=== PATIENT | female | born 1970 | race Caucasian/White ===

== ENCOUNTER → 2016-04-23 | Outpatient (CLI) | payer BC ==
[~2016-04-23] MED LIST: DOCU-94 PO; IBUP-103 PO; POLY335019 PO
== END | disposition home or self-care (01) ==
LOC: C.PAPS 14:59
PROVIDERS: ATTEND Family Medicine
DX: Z12.72 Encounter for screening for malignant neoplasm of vagina (principal)

== ENCOUNTER → 2016-09-08 | Outpatient (CLI) | payer BC ==
[2016-09-08 16:52] LABS: MEAN CORPUSCULAR HGB CONC 33.3 g/dl (32-36)
[2016-09-08 17:03] LABS: PROTHROMBIN TIME (PATIENT) 10.8 SECONDS (9.0-12.0)
[2016-09-08 17:05] LABS: ALB/GLOB RATIO 1.3 (0.9-2); ALKALINE PHOSPHATASE 72 U/L (45-117); ALT/SGPT 18 U/L (12-78); AST/SGOT 15 U/L (15-37); BLOOD UREA NITROGEN 12 mg/dl (7-18); BUN/CREATININE RATIO 17.8 (10-20); CALCIUM 8.1 mg/dl (8.5-10.1); CARBON DIOXIDE 23 mmol/L (21-32); CHLORIDE 109 mmol/L (98-107); GLUCOSE 90 mg/dl (70-99); POTASSIUM 4.1 mmol/L (3.5-5.1); SODIUM 142 mmol/L (136-145)
[2016-09-08 17:41] LABS: BASO % 0.2 %; BASO ABS # 0.01 K/uL (0-0.2); COMPLETE YES; EOS % 0.5 %; HEMATOCRIT 42.4 % (37-47); IG% 0.2 %; LARGE PLATELETS 1+; LYMPH % 19.4 %; LYMPH ABS # 1.13 K/uL (1.2-3.4); MEAN CELL VOLUME 97.2 fL (80-100); MEAN CORPUSCULAR HEMOGLOBIN 32.3 pg (25-34); MEAN PLATELET VOLUME 13.4 fL (7.4-10.4); MONO % 8.3 %; NEUT % 71.4 %; PLATELET COUNT 130 K/uL (130-400); PLT ESTIMATE DECREASED; RED BLOOD COUNT 4.36 M/uL (4.2-5.4); WHITE BLOOD COUNT 5.81 K/uL (4.8-10.8)
== END | disposition home or self-care (01) ==
LOC: C.LABSPEC 16:40
PROVIDERS: ATTEND Family Medicine
DX: Z01.818 Encounter for other preprocedural examination (principal)

== ENCOUNTER → 2016-09-14 | Outpatient (CLI) | payer BC ==
--- NOTE | 2016-09-14 09:25 | DIAGNOSTIC IMAGING REPORT ---
TWO VIEW CHEST CLINICAL HISTORY: Dyspnea. FINDINGS: PA and lateral chest radiographs are obtained. No prior studies are available for comparison at the time of dictation. The cardiomediastinal silhouette is unremarkable. The lungs appear hyperinflated and hyperlucent. Nonspecific interstitial thickening is noted and there is increased retrosternal clear space. No airspace consolidation or pleural effusion is seen. There is no pneumothorax. The bony thorax appears intact. IMPRESSION: Findings suggest emphysema. There is no acute cardiopulmonary abnormality. Electronically signed by: Ananth Cortes M.D. 09/14/2016 9:24 AM Dictated Date/Time: 09/14/2016 9:21 AM
== END | disposition home or self-care (01) ==
LOC: C.RADBC 09:04
PROVIDERS: ATTEND Family Medicine
DX: R06.02 Shortness of breath (principal)

== ENCOUNTER 2016-10-24 16:12 | Emergency (ER) | payer BC ==
[~2016-10-24] VITALS: Ht 165.1 cm; Wt 61.7 kg
[2016-10-24 16:19] VITALS: Ht 165.1 cm; Wt 61.7 kg
[2016-10-24] MEDS ORDERED: IBUP-103 PO (17:02)
[2016-10-24] MEDS ORDERED: DOCU-94 PO (17:02)
--- NOTE | 2016-10-24 18:26 | DIAGNOSTIC IMAGING REPORT ---
PA CHEST RADIOGRAPH AND UPRIGHT AND SUPINE AP RADIOGRAPHS OF THE ABDOMEN CLINICAL HISTORY: Constipation. COMPARISON STUDY: Chest radiograph September 14, 2016. FINDINGS: Lung volumes are normal. Lungs are clear. No pneumothorax or pleural effusion is present. Cardiac size is normal. Mediastinal contours are normal. There is no evidence of pulmonary edema. There is no free air. The bowel gas pattern is normal. There is a moderate amount of stool within the colon and rectum. Incidental note is made of a few suspected bone islands within the pelvic bones. IMPRESSION: 1. No free air or evidence of bowel obstruction. 2. Moderate amount of stool within the colon and rectum. 3. No acute cardiopulmonary findings. Electronically signed by: Aki Levin M.D. 10/24/2016 6:24 PM Dictated Date/Time: 10/24/2016 6:23 PM
--- NOTE | 2016-10-24 18:42 | EMERGENCY ROOM VISIT NOTE ---
ED Visit Note First contact with patient: 17:00 CHIEF COMPLAINT: Constipation, rectal pain HISTORY OF PRESENT ILLNESS: This 46-year-old female patient presents to the emergency department complaining of constipation and pain in her rectum with straining while attempting to move her bowels. The patient states on October 06, she had rectal surgery with Dr. Berg from [facility]. The patient states she had several skin tags and polyps removed from her rectum. The patient reports a weird skin colored lesion on the right side of the anus. She states this is "like licorice" and worse with straining. The patient states she feels that she has been having difficulty with moving her bowels, and is having to change positions in order to go. The patient states she has only been experiencing golfball sized bowel movements, every couple of days, since her surgery earlier this month. The patient states her last good bowel movement was approximately October 10. She has moved her bowels every 2-3 days since then. She describes her bowel movements now as hard and small, and she is having difficulty passing them. The patient was told to use Benefiber supplements, however she feels that this makes her stool to bulky, and she feels that her stool gets tucked back into her rectum because of the size while taking Benefiber. The patient reports a sharp and burning sensation on the right side of her anus. The patient describes this pain as 8/10 while she's having a bowel movement. The patient denies pain in between bowel movements. The patient denies blood in her stool. The patient did see her surgeon one week ago, and is scheduled to see him again in 3 days. Patient has not used any OTC constipation medications with the exception of Benefiber. The patient has not attempted any other treatments for constipation. The patient denies abdominal pain, nausea, vomiting, diarrhea, chest pain, dyspnea, headache, body aches, chills, fever. REVIEW OF SYSTEMS: A 10-system review of systems was performed with positives and pertinent negatives listed in the history of present illness. All other systems were reviewed and are negative. ALLERGIES: None MEDICATIONS: Advil, Colace, fiber PMH: Polyps in her colon SOCIAL HISTORY: The patient lives locally with family. She denies drug, alcohol , tobacco use. PHYSICAL EXAM: VITALS: Vitals are noted on the nurse's note and reviewed by myself. Vital signs stable. GENERAL: Is a 46-year-old female, in no acute distress, nondiaphoretic, well- developed well-nourished. SKIN: The skin was without rashes, erythema, edema, or bruising. There is no tenting of the skin. Capillary reflex less than 2 seconds. HEAD: Normocephalic atraumatic. EARS: External auditory canals clear, tympanic membranes pearly sidhu without erythema or effusion bilaterally. EYES: Pupils equal round and reactive to light and accommodation. Conjunctivae without injection, sclerae without icterus. Extraocular movements intact. NOSE: Patent, turbinates without inflammation or discharge. No sinus tenderness. MOUTH: Mucous membranes moist. Tonsils are not enlarged. Pharynx without erythema or exudate. Uvula midline. Airway patent. Tongue does not deviate. NECK: Supple without nuchal rigidity. No lymphadenopathy. No thyromegaly. Cervical spine is nontender. No JVD. HEART: Regular rate and rhythm without murmurs gallops or rubs. LUNGS: Clear to auscultation bilaterally without wheezes, rales or rhonchi. No dullness to percussion. No retractions or accessory muscle use. ABDOMEN: Positive bowel sounds x 4. Normal tympanic percussion. Soft, nontender, without masses or organomegaly. Blair sign negative. No guarding or rebound tenderness. RECTAL: No rectal fissures. No skin tags appreciated. No active bleeding. No external or internal hemorrhoids noted on exam. A sterile, water-soluble lubricant was applied to the examiner's finger prior to initial exam. No rectal vault tenderness, no rectal masses, no fecal impaction. MUSCULOSKELETAL: No muscle atrophy, erythema, or edema noted. Full range of motion without joint tenderness in all extremities. No tenderness to palpation. Normal gait. Strength 5/5 throughout. NEURO: Patient was alert and oriented to person place and time. Normal sensation to light and sharp touch. Deep tendon reflexes 2+ throughout. No focal neurological deficits. RADIOLOGY: X-Ray Abdomen with PA Chest: FINDINGS: Lung volumes are normal. Lungs are clear. No pneumothorax or pleural effusion is present. Cardiac size is normal. Mediastinal contours are normal. There is no evidence of pulmonary edema. There is no free air. The bowel gas pattern is normal. There is a moderate amount of stool within the colon and rectum. Incidental note is made of a few suspected bone islands within the pelvic bones. IMPRESSION: 1. No free air or evidence of bowel obstruction. 2. Moderate amount of stool within the colon and rectum. 3. No acute cardiopulmonary findings. EMERGENCY DEPARTMENT COURSE: The patient was seen and evaluated as above. In x- ray of the patient's abdomen was ordered to rule out bowel obstruction. I did discuss x-ray results with the patient, and did discuss with her discharge instructions. I encouraged the patient to follow up with her surgeon on Wednesday at her regularly scheduled appointment. The patient was discharged home in good condition. DIFFERENTIAL DIAGNOSIS: Bowel obstruction, diverticulitis, fecal impaction, malignancy, hemorrhoid, and others. DIAGNOSIS: Constipation DISCHARGE INSTRUCTIONS & TREATMENT: You have been treated in the Emergency Department today for Constipation. Imaging studies do not indicate any emergent issues warranting surgery or admission. You should drink plenty of fluids and stay well hydrated as this can help soften your stool. Increasing your fiber intake can help with frequency and consistency of your stools. Fruits, vegetables, and whole grains are all good sources of dietary fibers. In addition, you might consider adding supplemental fiber to your diet as well (i.e. Benefiber, Fiber Choice, Metamucil). You should schedule an appointment with your Primary Care Provider and/or bleaching supervisor to discuss the possibility of adding a stool softener or laxative to your medications. Stool Softeners and Laxatives should only be taken after consultation with your PCP as they have the potential to cause electrolyte abnormalities and worsening symptoms. Consider adding MiraLAX, one capful daily. 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 Please follow up your regularly scheduled appointment on Wednesday with your bleaching supervisor. Return to the Emergency Department if your current symptoms worsen despite treatment course outlined above, or if you develop any of the following symptoms : worsening abdominal pain, large amount of blood in the stool, black or tarry stools, fevers, chills, or uncontrollable vomiting. Current/Historical Medications Scheduled Docusate Sodium (Colace), 1 CAP PO BID Scheduled PRN Ibuprofen Tab (Advil), 200-600 MG PO Q4H PRN for Pain Allergies Coded Allergies: No Known Allergies (Unverified , 10/24/16) Vital Signs Date Time Temp Pulse Resp B/P (MAP) Pulse Ox O2 Delivery O2 Flow Rate FiO2 7/29/17 16:19 36.9 83 16 141/92 98 Room Air Departure Information Impression Primary Impression: Constipation Dispostion Home / Self-Care Condition GOOD Referrals Sara Pretty (PCP) Patient Instructions ED Constipation, My [facility] Additional Instructions You have been treated in the Emergency Department today for Constipation. Imaging studies do not indicate any emergent issues warranting surgery or admission. You should drink plenty of fluids and stay well hydrated as this can help soften your stool. Increasing your fiber intake can help with frequency and consistency of your stools. Fruits, vegetables, and whole grains are all good sources of dietary fibers. In addition, you might consider adding supplemental fiber to your diet as well (i.e. Benefiber, Fiber Choice, Metamucil). You should schedule an appointment with your Primary Care Provider and/or bleaching supervisor to discuss the possibility of adding a stool softener or laxative to your medications. Stool Softeners and Laxatives should only be taken after consultation with your PCP as they have the potential to cause electrolyte abnormalities and worsening symptoms. Consider adding MiraLAX, one capful daily. 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 Please follow up your regularly scheduled appointment on Wednesday with your bleaching supervisor. Return to the Emergency Department if your current symptoms worsen despite treatment course outlined above, or if you develop any of the following symptoms : worsening abdominal pain, large amount of blood in the stool, black or tarry stools, fevers, chills, or uncontrollable vomiting. Problem Qualifiers Primary Impression: Constipation Constipation type: unspecified constipation type Qualified Codes: K59.00 - Constipation, unspecified
[2016-10-24 18:51] VITALS: BP 124/80; PULSE 83; TEMP 36.9; O2SAT 98
[2016-11-06] MEDS ORDERED: POLY335019 PO (15:38)
== END 2016-10-24 18:53 | disposition home or self-care (01) ==
LOC: C.EDB 16:13 → C.EDC 18:53
DX: K59.00 Constipation, unspecified (principal); K62.89 Other specified diseases of anus and rectum; Z87.19 Personal history of other diseases of the digestive system